=== PATIENT | male | born 1985 | race Caucasian/White ===

== ENCOUNTER 2024-10-07 11:07 | Emergency (ER) | payer BC ==
[~2024-10-07] VITALS: Ht 200.7 cm; Wt 113.0 kg
[2024-10-07 11:10] VITALS: BP 132/72; PULSE 58; RESP 16; TEMP 36.9; O2SAT 98; O2SAT 99
[2024-10-07] MEDS ORDERED: SULF1TAB48 MT (11:54)
[2024-10-07] MEDS ORDERED: CEPH500C2 MT (11:54)
[2024-10-07] MEDS ORDERED: SULFAMETHOXAZOLE/TRIMETHOPRIM 800/160MG TABLET PO ONE (12:00)
[2024-10-07] MEDS: SULFAMETHOXAZOLE/TRIMETHOPRIM 800/160MG TABLET PO NR (12:14)
[2024-10-07] MEDS: CEPHALEXIN 250MG CAPSULE PO ONE (12:15)
== END 2024-10-07 12:19 | disposition home or self-care (01) ==
LOC: ER 11:07
DX: L03.317 Cellulitis of buttock (principal); E11.9 Type 2 diabetes mellitus without complications; I10 Essential (primary) hypertension; Z79.4 Long term (current) use of insulin
CPT/HCPCS: 99283